=== PATIENT | female | born 1955 | race Two or more races ===

== ENCOUNTER 2017-09-29 13:15 | Emergency (ER) | payer OTHER ==
[2017-09-29 13:22] VITALS: BP 144/80; PULSE 86; TEMP 97.8; BMI 32.0
[2017-09-29] MEDS ORDERED: IBUPROFEN 600 MG TABLET (FP) PO ONE ×2 (14:06→14:34)
--- NOTE | 2017-09-29 14:14 | PDOC ---
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 Denies head injury, denies any back pain. Has complaints of pain and immobilityto left shoulder and tenderness to neck, and some bruising to her left knee. States is ambulatory but pain is primarily to her left shoulder. Admits to having a very low pain threshold. Is left handed and finding it difficult to perform her ADLs. Has taken no medication for relief of pain, has not done any treatments for relief. 09/29/17 18:26 Occurred: reports: yesterday Severity: reports: moderate Pain Location: reports: neck, upper extremity (left shoulder ) Method of Injury: Yes: fall Modifying Factors: improves with: None Loss of Consciousness: no loss of consciousness (did not strike head) Associated Symptoms (Fall): denies symptoms, muscle spasms, neck pain Past History - Travel Traveled outside of the country in the last 30 days: Yes If so, where?: [place] Close contact w/someone who was outside of country & ill: No - Past Medical History Allergies/Adverse Reactions: Allergies Allergy/AdvReac Type Severity Reaction Status Date / Time No Known Allergies Allergy Verified 09/29/17 13:16 Home Medications: Ambulatory Orders Unobtainable [Unobtainable] 09/29/17 COPD: No Diabetes: Yes - Surgical History Appendectomy: Yes - Suicide/Smoking/Psychosocial Hx Smoking History: Never smoked Have you smoked in the past 12 months: No Information on smoking cessation initiated: No Hx Alcohol Use: No Drug/Substance Use Hx: No Substance Use Type: None Review of Systems - Review of Systems Able to Perform ROS?: Yes Is the patient limited Mongolian proficient: Yes Constitutional: Yes: Symptoms Reported, See HPI, Malaise. No: Fever, Loss of Appetite HEENTM: Yes: See HPI. No: Symptoms Reported Respiratory: Yes: See HPI. No: Symptoms reported Musculoskeletal: Yes: Symptoms Reported, See HPI, Joint Pain, Joint Swelling ( left shoulder and left knee), Neck Pain (upper trapezius) Integumentary: Yes: Symptoms Reported, See HPI, Bruising (left patella ) Neurological: Yes: See HPI. No: Symptoms reported, Headache, Numbness, Paresthesia All Other Systems: Reviewed and Negative *Physical Exam - Vital Signs Last Vital Signs Temp Pulse Resp BP Pulse Ox 97.8 F 86 18 144/80 100 09/29/17 13:17 09/29/17 13:17 09/29/17 13:17 09/29/17 13:17 09/29/17 13:17 - Physical Exam General Appearance: Yes: Nourished, Appropriately Dressed, Apparent Distress, Mild Distress, Moderate Distress HEENT: positive: JOSEPH, Normal ENT Inspection, TMs Normal Neck: positive: Tender (tense and tender sternocleidomastoid muscles and upper trapezius primary left side along shoulder capsule and upper lateral neck adams. No crepitus or step-offs to cervical spine, range of motion is somewhat limited secondary to this tenderness to the left side. Has some mild tenderness along the lateral aspect of scapula, tenderness at the before meals joint and mild tenderness to the lateral aspect of clavicle. Range of motion is limited to shoulder to approximately 45 abduction and forward flexion. Strong grasp to hand, and neurovascular intact), Supple Respiratory/Chest: positive: Lungs Clear. negative: Chest Tender Cardiovascular: positive: Regular Rhythm Gastrointestinal/Abdominal: positive: Soft. negative: Tender Musculoskeletal: positive: Decreased Range of Motion (limited to abduction to approximately 45 to left arm, pain is reproduced at clavicle/before meals joint ) Extremity: positive: Normal Capillary Refill, Tender (2 lateral), Other ( tenderness without crepitus or step-offs to patella, knee is mildly swollen but bilateral legs are morbidly obese and difficult to assess. Has no true tenderness to the medial or lateral aspect, is ambulatory with minimal unsteadiness.). negative: Normal Inspection, Normal Range of Motion Integumentary: positive: Normal Color, Dry, Swelling Neurologic: positive: strike plate attacher II-XII NML intact, Fully Oriented, Alert, Normal Mood/ Affect, Normal Response, Motor Strength 5/5 Progress Note - Progress Note Progress Note: X-ray negative for fractures or dislocations, we will treat with NSAIDs and conservative measures. Follow-up with orthopedist as needed for continued pain or problems *DC/Admit/Observation/Transfer Diagnosis at time of Disposition: Contusion Qualifiers: Encounter type: initial encounter Contusion area: shoulder Laterality: left Qualified Code(s): S40.012A - Contusion of left shoulder, initial encounter - Discharge Dispostion Disposition: HOME Condition at time of disposition: Stable Admit: No - Referrals Referrals: Rob Willson MD [Staff Physician] - - Patient Instructions Printed Discharge Instructions: DI for Contusion Additional Instructions: Rest, ice to area on and off for 15 minutes 4-6 times a day Avoid heavy lifting or exercise until pain and swelling is resolved or until further directed Keep area highly elevated to reduce swelling Use splints/Best wrap as directed Followup with orthopedist in one to 2 days if not improving, if significantly improved may wait one week for followup with orthopedist May use ibuprofen 2-200 mg tablets every 6 hours as needed for pain - Post Discharge Activity
== END 2017-09-29 15:34 | disposition home or self-care (01) ==
LOC: JERFT 13:15
DX: S40.012A Contusion of left shoulder, initial encounter (principal); W01.0XXA Fall on same level from slipping, tripping and stumbling without subsequent striking against object, initial encounter; Y93.89 Activity, other specified; Y92.89 Other specified places as the place of occurrence of the external cause; Y99.8 Other external cause status; E11.9 Type 2 diabetes mellitus without complications
CPT/HCPCS: 73010-TC; 73030-TC-LT; 99281-25

== ENCOUNTER 2017-11-06 17:54 | Observation (INO) | payer OTHER ==
--- NOTE | 2017-11-06 18:01 | PDOC ---
Rapid Medical Evaluation Time Seen by Provider: 11/06/17 17:55 Medical Evaluation: Allergies Allergy/AdvReac Type Severity Reaction Status Date / Time No Known Allergies Allergy Verified 11/06/17 17:55 I have performed a brief in-person evaluation of this patient. The patient presents with a chief complaint of: vomiting and weakness since yesterday (diabetic) Pertinent physical exam findings: none I have ordered the following: ekg, labs, UA/culture The patient will proceed to the ED for further evaluation.
[2017-11-06 18:41] LABS: URINE APPEARANCE CLOUDY; URINE BILIRUBIN NEGATIVE (NEGATIVE); URINE BLOOD NEGATIVE (NEGATIVE); URINE COLOR YELLOW; URINE GLUCOSE (UA) NEGATIVE (NEGATIVE); URINE KETONE NEGATIVE (NEGATIVE); URINE NITRITE NEGATIVE (NEGATIVE); URINE PROTEIN NEGATIVE (NEGATIVE); URINE UROBILINOGEN NEGATIVE mg/dL (0.2-1.0)
[2017-11-06 18:42] LABS: URINE LEUK ESTERASE 3+ (NEGATIVE)
[2017-11-06 18:43] LABS: BASO % 0.8 % (0-2.0); EOS % 3.5 % (0-4.5); HEMATOCRIT 45.7 % (32.4-45.2); HEMOGLOBIN 15.2 GM/dL (10.7-15.3); LYMPH % 43.4 % (8-40); MCH 28.4 pg (25.7-33.7); MCHC 33.3 g/dl (32.0-36.0); MEAN CELL VOLUME 85.1 fl (80-96); MEAN PLT VOLUME 8.4 fl (7.5-11.1); MONO % 6.5 % (3.8-10.2); NEUT % 45.8 % (42.8-82.8); PLATELET COUNT 323 K/MM3 (134-434); RBC 5.37 M/mm3 (3.60-5.2); RDW 13.3 % (11.6-15.6); WHITE BLOOD COUNT 6.4 K/mm3 (4.0-10.0)
[2017-11-06 18:47] LABS: EPI CELLS MANY /HPF (FEW); URINE BACTERIA RARE /hpf (NONE SEEN); URINE MUCUS RARE
[2017-11-06 18:55] LABS: INR 1.01 (0.82-1.09); PROTHROMBIN TIME (PATIENT) 11.4 SEC (9.98-11.88)
[2017-11-06 19:10] LABS: ALBUMIN 3.8 g/dl (3.4-5.0); ANION GAP 4 (8-16); BILIRUBIN,TOTAL 0.3 mg/dL (0.2-1.0); BLOOD UREA NITROGEN 14 mg/dL (7-18); CALCIUM 8.7 mg/dL (8.5-10.1); CHLORIDE 103 mmol/L (98-107); CO2 31 mmol/L (21-32); GLUCOSE,RANDOM 181 mg/dL (74-106); POTASSIUM 4.3 mmol/L (3.5-5.1); SGOT/AST 19 U/L (15-37); SGPT/ALT 36 U/L (12-78); SODIUM 138 mmol/L (136-145); TOT PROT 8.1 g/dl (6.4-8.2)
[2017-11-06 19:12] LABS: ALK PHOS 117 U/L (45-117)
[2017-11-06] MEDS ORDERED: SULFAMETHOXAZOLE/TRIMETHOPRIM 800MG/160MG D.S. TABLET PO ONE (20:16)
[2017-11-06] MEDS ORDERED: MECLIZINE HCL 25 MG TABLET (FP) PO ONE (20:16)
--- NOTE | 2017-11-06 20:20 | PDOC ---
History of Present Illness - General Chief Complaint: Weakness Stated Complaint: FATIGUE Time Seen by Provider: 11/06/17 17:55 History Source: Patient, Family Exam Limitations: No Limitations - History of Present Illness Initial Comments: 11/06/17 20:18 The patient is a 62F with a PMH of DM (on metformin) who presents to the ER with complaints of diffuse weakness, vomiting, and dizziness. The patient states that her symptoms started 2 days ago and include weakness, vomiting yesterday, and a sensation that the room is spinning. She denies any vomiting today, nausea, fevers, chills, CP, SOB, abdominal pain, dysuria, and discharge. Past History - Past Medical History Allergies/Adverse Reactions: Allergies Allergy/AdvReac Type Severity Reaction Status Date / Time No Known Allergies Allergy Verified 11/06/17 17:55 Home Medications: Ambulatory Orders Unobtainable [Unobtainable] 09/29/17 COPD: No Diabetes: Yes - Surgical History Appendectomy: Yes - Suicide/Smoking/Psychosocial Hx Smoking History: Never smoked Have you smoked in the past 12 months: No Hx Alcohol Use: No Drug/Substance Use Hx: No Substance Use Type: None Review of Systems - Review of Systems Able to Perform ROS?: Yes Comments:: 11/06/17 21:30 GENERAL/CONSTITUTIONAL: No fever or chills. No weakness. HEAD, EYES, EARS, NOSE AND THROAT: No change in vision. No ear pain or discharge. No sore throat. CARDIOVASCULAR: No chest pain, palpitations, or lightheadedness. RESPIRATORY: No cough, wheezing, shortness of breath, or hemoptysis. GASTROINTESTINAL: Positive for vomiting. No nausea, diarrhea, constipation, or abdominal pain. GENITOURINARY: No dysuria, frequency, hematuria, or change in urination. MUSCULOSKELETAL: No joint or muscle swelling or pain. No neck or back pain. SKIN: No rash or lesions. NEUROLOGIC: Positive for dizziness. No headache, numbness, tingling, weakness, loss of consciousness, or change in strength/sensation. ENDOCRINE: No increased thirst. No abnormal weight change. HEMATOLOGIC/LYMPHATIC: No anemia, easy bleeding, or history of blood clots. ALLERGIC/IMMUNOLOGIC: No hives or skin allergy. Is the patient limited Macedonian proficient: No *Physical Exam - Vital Signs Last Vital Signs Temp Pulse Resp BP Pulse Ox 98.1 F 80 18 129/68 98 11/06/17 17:58 11/06/17 17:58 11/06/17 17:58 11/06/17 17:58 11/06/17 17:58 - Physical Exam Comments: 11/06/17 21:31 GENERAL: Well developed, well nourished. Awake and alert. No acute distress. HEENT: Normocephalic, atraumatic. Hearing grossly normal. Moist mucous membranes. PERRLA, EOMI. No conjunctival pallor. Sclera are non-icteric. NECK: Supple. Full ROM. No JVD. CARDIOVASCULAR: Regular rate and rhythm. No murmurs, rubs, or gallops. PULMONARY: No evidence of respiratory distress. Lungs clear to auscultation bilaterally. No wheezing, rales or rhonchi. ABDOMINAL: Soft. Non-tender. Non-distended. No rebound or guarding. GENITOURINARY: No CVA tenderness bilaterally. MUSCULOSKELETAL: Normal range of motion at all joints. No bony deformities or tenderness. EXTREMITIES: No cyanosis. No clubbing. No edema. No calf tenderness. SKIN: Warm and dry. Normal capillary refill. No rashes. No jaundice. NEUROLOGICAL: Alert, awake, appropriate. Cranial nerves 2-12 intact. Horizontal nystagmus noted when patient looked R. No deficits to light touch and temperature in face, upper extremities and lower extremities. No motor deficits in the in face, upper extremities and lower extremities. Normal speech. PSYCHIATRIC: Cooperative. Good eye contact. Appropriate mood and affect. Heart Score/ECG Review #1 ECG reviewed & interpreted by me at: 21:32 General ECG Interpretation: Sinus Rhythm, Normal Rate, Normal Intervals, No acute ischemic changes Compared to previous ECG there are: Previous ECG unavail 11/06/17 21:32 NSR Rate 67 QRS 86 QTc 414 ED Treatment Course - LABORATORY CBC & Chemistry Diagram: 11/06/17 18:14 11/06/17 18:14 - ADDITIONAL ORDERS Additional order review: Laboratory Results 11/06/17 11/06/17 11/06/17 18:18 18:14 18:14 PT with INR 11.40 INR 1.01 Sodium 138 Potassium 4.3 Chloride 103 Carbon Dioxide 31 Anion Gap 4 L BUN 14 Creatinine 1.0 Creat Clearance w eGFR 55.82 Random Glucose 181 H Calcium 8.7 Total Bilirubin 0.3 AST 19 ALT 36 Alkaline Phosphatase 117 Creatine Kinase 48 Troponin I < 0.02 Total Protein 8.1 Albumin 3.8 Urine Color Yellow Urine Appearance Cloudy Urine pH 5.0 Ur Specific [place] 1.024 Urine Protein Negative Urine Glucose (UA) Negative Urine Ketones Negative Urine Blood Negative Urine Nitrite Negative Urine Bilirubin Negative Urine Urobilinogen Negative Ur Leukocyte Esterase 3+ H Urine WBC (Auto) 19 Urine RBC (Auto) 13 Ur Epithelial Cells Many Urine Bacteria Rare Urine Mucus Rare 11/06/17 18:14 RBC 5.37 H MCV 85.1 MCHC 33.3 RDW 13.3 MPV 8.4 Neutrophils % 45.8 Lymphocytes % 43.4 H Monocytes % 6.5 Eosinophils % 3.5 Basophils % 0.8 - RADIOLOGY Radiology Studies Ordered: Category Date Time Status HEAD CT WITHOUT CONTRAST [CT] Stat CT Scan 11/06/17 20:03 Ordered Medical Decision Making - Medical Decision Making 11/06/17 21:32 The patient is a 62F with a PMH of DM who presents with vertiginous symptoms. UA indicates UTI. Will treat. I will order a CT because of 2-3 days of continuous vertiginous symptoms. Will give meclizine and bactrim. Dispo: likely admission for CVA workup. This is not a code great because of the delayed presentation. This is likely peripheral vertigo but central causes must be r/o. The patient is coming from a different country and does not have good follow up. She will require admission for a workup. 11/06/17 22:21 I have endorsed the patient to Dr. Dasilva. Pending CT head read. *DC/Admit/Observation/Transfer Diagnosis at time of Disposition: Vertiginous syndrome - Discharge Dispostion Condition at time of disposition: Stable Admit: Yes - Referrals - Patient Instructions - Post Discharge Activity
[2017-11-06] MEDS ORDERED: MECLIZINE HCL 25 MG TABLET (FP) ONE (20:22)
[2017-11-06] MEDS ORDERED: SULFAMETHOXAZOLE/TRIMETHOPRIM 800MG/160MG D.S. TABLET ONE (20:22)
--- NOTE | 2017-11-06 21:29 | PDOC ---
Attending Attestation - Resident Resident Name: Lit Florez - ED Attending Attestation I have performed the following: I have examined & evaluated the patient, The case was reviewed & discussed with the resident, I agree w/resident's findings & plan, Exceptions are as noted - HPI HPI: 11/06/17 22:19 62-year-old female with past medical history of diabetes presents with vertiginous-like symptoms for 3 days. The patient reported that she had persistent vertiginous symptoms that is constant throughout the day and worsened with movements. Stated she had vomited once yesterday and since then she felt very unsteady on her feet. Denies slurring of speech or drooling. Denies any numbness. However, she feels generally weak. Denies fevers, diarrhea , cough. Denies prior history of stroke. - Physicial Exam PE: 11/06/17 22:23 GENERAL: Awake, alert, and fully oriented, in no acute distress. HEAD: No signs of trauma EYES: PERRLA, EOMI, sclera anicteric, conjunctiva clear ENT: Auricles normal inspection, hearing grossly normal, nares patent NECK: Normal ROM, supple LUNGS: Breath sounds equal, clear to auscultation bilaterally. No wheezes, and no crackles HEART: Regular rate and rhythm, normal S1 and S2, no murmurs, rubs or gallops ABDOMEN: Soft, nontender, normoactive bowel sounds. No guarding, no rebound. No masses EXTREMITIES: Normal range of motion, no edema. No clubbing or cyanosis. No cords, erythema, or tenderness NEUROLOGICAL: Cranial nerves II through XII intact. Normal speech. 5/5 strength upper and lower extremities. Sensation intact throughout. No dysmetria. Attempted to gait the patient, but the patient was very unstable. No nystagmus. SKIN: Warm, Dry, normal turgor, no rashes or lesions noted. - Medical Decision Making 11/06/17 22:24 Vital Signs Temp Pulse Resp BP Pulse Ox 98.1 F 80 18 129/68 98 11/06/17 17:58 11/06/17 17:58 11/06/17 17:58 11/06/17 17:58 11/06/17 17:58 I suspect patient likely has vertigo. This may potentially be secondary or exacerbated by her urinary tract infection which she has received antibiotics. However, the patient has unstable gait but otherwise unremarkable neurological exam. Given her diabetes history, should consider the differential of posterior stroke with this patient. The NIH stroke scale is 0. CAT scan the head was obtained and demonstrates no acute findings. Will ultimately admit the patient to the hospital for further evaluation. Heart Score/ECG Review #1 ECG reviewed & interpreted by me at: 20:45 11/06/17 21:28 NSR 67, no std/cipriano, normal axis, normal intervals, QTC 414 msec NIH Stroke Scale - Last Known Well Date/Time & Onset Date Last Known Well: 11/03/17 - Initial Evaluation Level of consciousness: Alert Ask patient the month and their age: Answers both correctly Ask patient to open & close eyes; make fist and let go: Obeys both correctly Best gaze (horizontal eye movement): Normal Visual field testing: No visual field loss Facial paresis (Show teeth/raise eyebrows/close eyes tight): Normal symmetrical movement Motor Function: Left Arm: Normal Motor Function: Right Arm: Normal (extends arm 90 (or 45) degrees for 10 seconds without drift Motor Function: Left Leg: Normal (extends leg 30 degrees for 5 seconds without drift) Motor Function: Right Leg: Normal (extends leg 30 degrees for 5 seconds without drift) Limb Ataxia: No ataxia Sensory(Use pinprick test arms,legs,trunk,face/side to side): Normal Best language (Describe picture, name items, read sentences): No Aphasia Dysarthria (read several words): Normal articulation Extinction and Inattention: No abnormality - Total Score NIH Stroke Scale Score: 0
--- NOTE | 2017-11-06 23:30 | HP ---
CHIEF COMPLAINT: dizziness PCP: HISTORY OF PRESENT ILLNESS: 62 y/o F w/PMH of DM presents to ER w/ c/o nausea, vomiting and dizziness. Pt has had these symptoms for 2 days and she feels as though the room is spinning even when laying on her bed but is worsened especially when moving her head. Pt states she has had these symptoms in the past when she was on a flight 3 months ago. Her sister also has similar symptoms. She denies any CP, SOB, abd pain, dysuria. She also c/o L shoulder pain and decreased ROM of L arm at shoulder. ER course was notable for: (1) meclizine 25 mg, bactrim (2) Head CT PAST MEDICAL HISTORY: DM PAST SURGICAL HISTORY: Appendectomy Social History: Smoking: denies Alcohol: denies Drugs: denies Family History: Sister with vertigo Allergies No Known Allergies Allergy (Verified 11/06/17 17:55) HOME MEDICATIONS: Home Medications Medication Instructions Recorded Unobtainable [Unobtainable] 09/29/17 REVIEW OF SYSTEMS CONSTITUTIONAL: Absent: fever, chills CARDIOVASCULAR: Absent: chest pain, syncope RESPIRATORY: Absent: cough, shortness of breath GASTROINTESTINAL: +nausea, vomiting Absent: abdominal pain GENITOURINARY: Absent: dysuria, frequency NEUROLOGIC: dizziness PHYSICAL EXAMINATION Vital Signs - 24 hr 11/06/17 17:58 Temperature 98.1 F Pulse Rate 80 Respiratory 18 Rate Blood Pressure 129/68 O2 Sat by Pulse 98 Oximetry (%) GENERAL: Awake, alert, and fully oriented, in no acute distress. HEAD: Normal with no signs of trauma. EYES: extraocular movements intact, sclera anicteric, conjunctiva clear. EARS, NOSE, THROAT: Ears normal, nares patent NECK: Normal range of motion, supple LUNGS: Breath sounds equal, clear to auscultation bilaterally. HEART: Regular rate and rhythm, normal S1 and S2 ABDOMEN: Soft, nontender, not distended, normoactive bowel sounds. UPPER EXTREMITIES: No peripheral edema. LUE with decreased ROM at shoulder. LOWER EXTREMITIES: warm, well-perfused. No peripheral edema. NEUROLOGICAL: Normal speech. Gait not observed. PSYCHIATRIC: Cooperative. Good eye contact. Appropriate mood and affect. SKIN: Warm, dry Laboratory Results - last 24 hr 11/06/17 11/06/17 11/06/17 18:14 18:14 18:14 WBC 6.4 RBC 5.37 H Hgb 15.2 Hct 45.7 H MCV 85.1 MCH 28.4 MCHC 33.3 RDW 13.3 Plt Count 323 MPV 8.4 Neutrophils % 45.8 Lymphocytes % 43.4 H Monocytes % 6.5 Eosinophils % 3.5 Basophils % 0.8 PT with INR 11.40 INR 1.01 Sodium 138 Potassium 4.3 Chloride 103 Carbon Dioxide 31 Anion Gap 4 L BUN 14 Creatinine 1.0 Creat Clearance w eGFR 55.82 Random Glucose 181 H Calcium 8.7 Total Bilirubin 0.3 AST 19 ALT 36 Alkaline Phosphatase 117 Creatine Kinase 48 Troponin I < 0.02 Total Protein 8.1 Albumin 3.8 Urine Color Urine Appearance Urine pH Ur Specific [place] Urine Protein Urine Glucose (UA) Urine Ketones Urine Blood Urine Nitrite Urine Bilirubin Urine Urobilinogen Ur Leukocyte Esterase Urine WBC (Auto) Urine RBC (Auto) Ur Epithelial Cells Urine Bacteria Urine Mucus 11/06/17 18:18 WBC RBC Hgb Hct MCV MCH MCHC RDW Plt Count MPV Neutrophils % Lymphocytes % Monocytes % Eosinophils % Basophils % PT with INR INR Sodium Potassium Chloride Carbon Dioxide Anion Gap BUN Creatinine Creat Clearance w eGFR Random Glucose Calcium Total Bilirubin AST ALT Alkaline Phosphatase Creatine Kinase Troponin I Total Protein Albumin Urine Color Yellow Urine Appearance Cloudy Urine pH 5.0 Ur Specific [place] 1.024 Urine Protein Negative Urine Glucose (UA) Negative Urine Ketones Negative Urine Blood Negative Urine Nitrite Negative Urine Bilirubin Negative Urine Urobilinogen Negative Ur Leukocyte Esterase 3+ H Urine WBC (Auto) 19 Urine RBC (Auto) 13 Ur Epithelial Cells Many Urine Bacteria Rare Urine Mucus Rare Imaging: Head CT 11/06/2017: Impression: No acute intracranial hemorrhage, mass effects, or hydrocephalus. ASSESSMENT/PLAN: 62 y/o F w/PMH of DM presents to ER w/ c/o nausea, vomiting and dizziness. To be monitored in obs for vertigo. -Dizziness likely secondary to BPPV -Meclizine 25 mg po bid PRN for dizziness -ENT consulted -Will need a prescription of meclizine prn for dizziness -L shoulder pain likely secondary to rotator cuff tear -Ortho consulted -tylenol 650 mg po q6h prn for pain -UTI -c/w bactrim -DM -BGMs, ISS ACHS -DVT ppx -Heparin 5000 units sq q8h -FEN -No fluids -monitor electrolytes -Diabetic diet -Dispo: Monitor in obs Visit type - Emergency Visit Emergency Visit: Yes ED Registration Date: 11/06/17 Care time: The patient presented to the Emergency Department on the above date and was hospitalized for further evaluation of their emergent condition. - New Patient This patient is new to me today: Yes Date on this admission: 11/07/17 - Critical Care Critical Care patient: No
[2017-11-06] MEDS ORDERED: ACETAMINOPHEN 325 MG TABLET (FP) PO PRN (23:33)
[2017-11-06] MEDS ORDERED: MECLIZINE HCL 25 MG TABLET (FP) PO PRN (23:33)
--- NOTE | 2017-11-07 00:11 | PN ---
Teaching Attending Note Name of Resident: Alexandru Galan ATTENDING PHYSICIAN STATEMENT I saw and evaluated the patient. I reviewed the resident's note and discussed the case with the resident. I agree with the resident's findings and plan as documented. SUBJECTIVE: patient presented to the hospital with vertigo that occurred while she was laying in be the patient stated that the pain is worse when the patient moves her head in bed. she had similar episode before while she was flying from [place] , according to the daughter the patient's sister has the same problem. CT scan didnt show any acute stroke OBJECTIVE: ASSESSMENT AND PLAN: 62 y/o F w/PMH of DM presents to ER w/ c/o nausea, vomiting and dizziness. To be monitored in obs for vertigo. -Dizziness likely secondary BPPV -Meclizine 25 mg po bid PRN for dizziness -ENT consulted -Will need a prescription of meclizine prn for dizziness - consider repeating CT scan if high clinical suspicion for stroke -L shoulder pain likely secondary to rotator cuff tear -Ortho consulted -tylenol 650 mg po q6h prn for pain -DM -BGMs, ISS ACHS -DVT ppx -Heparin 5000 units sq q8h -
[2017-11-07 01:11] VITALS: BMI 31.1
[2017-11-07] MEDS: INSULIN SLIDING SCALE (NOVOLOG) 1 VIAL SQ SCH ×4 (06:06→21:45)
[2017-11-07 07:50] LABS: ALBUMIN 3.5 g/dl (3.4-5.0); ANION GAP 5 (8-16); BLOOD UREA NITROGEN 15 mg/dL (7-18); CALCIUM 8.7 mg/dL (8.5-10.1); CHLORIDE 102 mmol/L (98-107); CO2 32 mmol/L (21-32); GLUCOSE,RANDOM 169 mg/dL (74-106); POTASSIUM 4.1 mmol/L (3.5-5.1); SGOT/AST 16 U/L (15-37); SGPT/ALT 32 U/L (12-78); SODIUM 139 mmol/L (136-145)
[2017-11-07 08:02] LABS: ALK PHOS 108 U/L (45-117); BILIRUBIN,TOTAL 0.4 mg/dL (0.2-1.0); CREATININE 0.9 mg/dL (0.55-1.02); TOT PROT 7.3 g/dl (6.4-8.2)
[2017-11-07 08:03] LABS: BASO % 0.7 % (0-2.0); EOS % 3.7 % (0-4.5); HEMATOCRIT 43.4 % (32.4-45.2); HEMOGLOBIN 14.2 GM/dL (10.7-15.3); LYMPH % 51.2 % (8-40); MCH 27.7 pg (25.7-33.7); MCHC 32.7 g/dl (32.0-36.0); MEAN CELL VOLUME 84.8 fl (80-96); MEAN PLT VOLUME 8.1 fl (7.5-11.1); MONO % 7.5 % (3.8-10.2); NEUT % 36.9 % (42.8-82.8); PLATELET COUNT 296 K/MM3 (134-434); RBC 5.12 M/mm3 (3.60-5.2); RDW 13.2 % (11.6-15.6)
[2017-11-07] MEDS: MECLIZINE HCL 25 MG TABLET (FP) PO PRN (09:57)
[2017-11-07] MEDS: SULFAMETHOXAZOLE/TRIMETHOPRIM 800MG/160MG D.S. TABLET PO SCH ×2 (09:57→21:11)
--- NOTE | 2017-11-07 11:32 | CONSULT ---
Consult - History of Present Illness Chief Complaint: Left shoulder pain History of Present Illness: 62 y/o female c/o left shoulder pain for approximately 3-4 months. She was living in [place] at the time and fell hard onto the left shoulder. She states she has been unable to lift the arm since. She did go to the ER about 6 weeks ago and had an x-ray of the shoulder which was normal. The pain is worse with use and better with rest. No other associated, aggravating or relieving factors. - History Source History Provided By: Patient, Family Member, Medical Record - Past Medical History ...: No - Alcohol/Substance Use Hx Alcohol Use: No - Smoking History Smoking history: Never smoked Have you smoked in the past 12 months: No Home Medications - Allergies Allergies/Adverse Reactions: Allergies Allergy/AdvReac Type Severity Reaction Status Date / Time No Known Allergies Allergy Verified 11/06/17 17:55 - Home Medications Home Medications: Ambulatory Orders Unobtainable [Unobtainable] 09/29/17 Review of Systems - Review of Systems Constitutional: reports: No Symptoms Eyes: reports: No Symptoms HENT: reports: No Symptoms Neck: reports: No Symptoms Cardiovascular: reports: No Symptoms Respiratory: reports: No Symptoms Gastrointestinal: reports: No Symptoms Genitourinary: reports: No Symptoms, Testicular Pain Musculoskeletal: reports: Extremity Pain Integumentary: reports: No Symptoms Neurological: reports: No Symptoms Endocrine: reports: No Symptoms Hematology/Lymphatic: reports: No Symptoms Psychiatric: reports: No Symptoms Physical Exam Vital Signs: Vital Signs Temperature 98.6 F 11/07/17 10:00 Pulse Rate 58 L 11/07/17 10:00 Respiratory Rate 18 11/07/17 10:00 Blood Pressure 110/61 11/07/17 10:00 O2 Sat by Pulse Oximetry (%) 99 11/07/17 10:00 Constitutional: Yes: Well Nourished, No Distress, Calm HENT: Yes: Atraumatic, Normocephalic Musculoskeletal: Yes: Other (Left shoulder: Mild edema of the shoulder. Diffuse tenderness along the joint space. No tenderness along the calvicle. Pain with motion of the shoulder. Foward flexion to 100 degrees. Postive empty can test. Smooth ROM of the shoulder. NVID) Labs: CBC, BMP 11/07/17 06:15 02/03/18 06:15 Imaging - Results X-ray: Report Reviewed, Image Reviewed (Xray of left shoulder from sep 2017 is normal) Assessment/Plan #1 Left shoulder pain s/p fall 4 months ago -Discussed today's findings and treatment options with the patient -Recommend MRI to rule out rotator cuff tear
--- NOTE | 2017-11-07 13:04 | EKG ---
Test Reason : Blood Pressure : / mmHG Vent. Rate : 067 BPM Atrial Rate : 067 BPM P-R Int : 160 ms QRS Dur : 086 ms QT Int : 392 ms P-R-T Axes : 049 -01 068 degrees QTc Int : 414 ms NORMAL SINUS RHYTHM POOR R WAVE PROGRESSION ABNORMAL ECG NO PREVIOUS ECGS AVAILABLE Confirmed by ZAHRA REBOLLEDO, NBA ([id number]) on 11/07/2017 1:03:58 PM Referred By: Confirmed By:NBA SWEENEY MD
--- NOTE | 2017-11-07 17:34 | PN ---
Physical Exam: SUBJECTIVE: Patient seen and examined Patient is feeling better on Meclizine po. No dizziness today. OBJECTIVE: Vital Signs Temperature 98.1 F 11/07/17 14:00 Pulse Rate 97 H 11/07/17 14:00 Respiratory Rate 18 11/07/17 10:00 Blood Pressure 120/91 11/07/17 14:00 O2 Sat by Pulse Oximetry (%) 99 11/07/17 10:00 GENERAL: The patient is awake, alert, and fully oriented, in no acute distress. HEAD: Normal with no signs of trauma. EYES: PERRL, extraocular movements intact, sclera anicteric, conjunctiva clear. ENT: Ears normal, oropharynx clear without exudates, moist mucous membranes. NECK: Trachea midline, full range of motion, supple. LUNGS: Breath sounds equal, clear to auscultation bilaterally, no wheezes, no crackles, no accessory muscle use. HEART: Regular rate and rhythm, S1, S2 without murmur, rub or gallop. ABDOMEN: Soft, nontender, nondistended, normoactive bowel sounds, no guarding, no rebound, no hepatosplenomegaly, no masses. EXTREMITIES: 2+ pulses, warm, well-perfused, no edema. NEUROLOGICAL: Cranial nerves II through XII grossly intact. Normal speech, gait not observed. PSYCH: Normal mood, normal affect. SKIN: Warm, dry, normal turgor, no rashes or lesions noted CBCD WBC 6.0 K/mm3 (4.0-10.0) 11/07/17 06:15 RBC 5.12 M/mm3 (3.60-5.2) 11/07/17 06:15 Hgb 14.2 GM/dL (10.7-15.3) 11/07/17 06:15 Hct 43.4 % (32.4-45.2) 11/07/17 06:15 MCV 84.8 fl (80-96) 11/07/17 06:15 MCHC 32.7 g/dl (32.0-36.0) 11/07/17 06:15 RDW 13.2 % (11.6-15.6) 11/07/17 06:15 Plt Count 296 K/MM3 (134-434) 11/07/17 06:15 MPV 8.1 fl (7.5-11.1) 11/07/17 06:15 CMP Sodium 139 mmol/L (136-145) 11/07/17 06:15 Potassium 4.1 mmol/L (3.5-5.1) 11/07/17 06:15 Chloride 102 mmol/L (98-107) 11/07/17 06:15 Carbon Dioxide 32 mmol/L (21-32) 11/07/17 06:15 Anion Gap 5 (8-16) L 11/07/17 06:15 BUN 15 mg/dL (7-18) 11/07/17 06:15 Creatinine 0.9 mg/dL (0.55-1.02) 11/07/17 06:15 Creat Clearance w eGFR > 60 (>60) 11/07/17 06:15 Random Glucose 169 mg/dL (74-106) H 11/07/17 06:15 Calcium 8.7 mg/dL (8.5-10.1) 11/07/17 06:15 Total Bilirubin 0.4 mg/dL (0.2-1.0) D 11/07/17 06:15 AST 16 U/L (15-37) 11/07/17 06:15 ALT 32 U/L (12-78) 11/07/17 06:15 Alkaline Phosphatase 108 U/L (45-117) 11/07/17 06:15 Total Protein 7.3 g/dl (6.4-8.2) 11/07/17 06:15 Albumin 3.5 g/dl (3.4-5.0) 11/07/17 06:15 CARDIAC ENZYMES Creatine Kinase 48 IU/L (26-192) 11/06/17 18:14 Troponin I < 0.02 ng/ml (0.00-0.05) 11/06/17 18:14 Current Medications Generic Name Dose Route Start Last Admin Trade Name Freq PRN Reason Stop Dose Admin Acetaminophen 650 mg 11/06/17 23:33 Tylenol - PO Q6H PRN PAIN Insulin Aspart 1 vial 11/07/17 07:00 11/07/17 13:15 Novolog Vial Sliding Scale - SQ 2 units ACHS MICHELLE Administration Protocol Meclizine HCl 25 mg 11/06/17 23:39 11/07/17 09:57 Antivert - PO 25 mg Q12H PRN Administration VERTIGO Trimethoprim/Sulfamethoxazole 1 each 11/07/17 10:00 11/07/17 09:57 Bactrim Ds - PO 1 each BID MICHELLE Administration Home Medications Medication Instructions Recorded Unobtainable [Unobtainable] 09/29/17 A/P: 62 y/o F w/PMH of DM presents to ER w/ c/o nausea, vomiting and dizziness. To be monitored in obs for vertigo. # Acute Dizziness due to BPPV will continue Meclizine 25 mg po bid PRN for dizziness #L shoulder pain possible to rotator cuff tear , Ortho consult appreciated ordered MRI ordered will follow. # DM on BGMs, ISS ACHS, continue DVT ppx Heparin 5000 units sq q8h Visit type - Emergency Visit Emergency Visit: Yes ED Registration Date: 11/06/17 Care time: The patient presented to the Emergency Department on the above date and was hospitalized for further evaluation of their emergent condition. - New Patient This patient is new to me today: Yes Date on this admission: 11/07/17 - Critical Care Critical Care patient: No - Discharge Referral Referred to [facility] Med P.C.: No
[2017-11-08] MEDS: INSULIN SLIDING SCALE (NOVOLOG) 1 VIAL SQ SCH ×3 (06:07→18:21)
--- NOTE | 2017-11-08 11:04 | PN ---
Physical Exam: SUBJECTIVE: Patient seen and examined at bedside. No acute overnight events. Patient's daughter is at bedside and assisted in translating. Patient's vertigo has improved. Complains of mild, chronic left shoulder pain that has been present previously OBJECTIVE: Vital Signs Period Temp Pulse Resp BP Sys/High Pulse Ox Last 24 Hr 97.4 F-98.4 F 71-97 18-24 108-128/61-91 96-97 GENERAL: The patient is awake, alert, and fully oriented, in no acute distress. HEAD: Normal with no signs of trauma. LUNGS: Breath sounds equal, clear to auscultation bilaterally, no wheezes, no crackles, no accessory muscle use. HEART: Regular rate and rhythm, S1, S2 without murmur, rub or gallop. ABDOMEN: Soft, nontender, nondistended, normoactive bowel sounds, no guarding, no rebound, no hepatosplenomegaly, no masses. EXTREMITIES: 2+ pulses, warm, well-perfused, no edema. 3/5 muscle strength of L shoulder with limited ROM NEUROLOGICAL: Cranial nerves II through XII grossly intact. Normal speech, gait not observed. PSYCH: Normal mood, normal affect. SKIN: Warm, dry, normal turgor, no rashes or lesions noted Laboratory Results - last 24 hr 11/07/17 11/07/17 11/08/17 12:55 21:38 05:52 POC Glucometer 171 218 184 Active Medications Generic Name Dose Route Start Last Admin Trade Name Freq PRN Reason Stop Dose Admin Acetaminophen 650 mg 11/06/17 23:33 Tylenol - PO Q6H PRN PAIN Insulin Aspart 1 vial 11/07/17 07:00 11/08/17 06:07 Novolog Vial Sliding Scale - SQ 2 units ACHS MICHELLE Administration Protocol Meclizine HCl 25 mg 11/06/17 23:39 11/07/17 09:57 Antivert - PO 25 mg Q12H PRN Administration VERTIGO ASSESSMENT/PLAN: 62 year old female with history of diabetes is admitted for observation for vertigo, nausea and vomiting #Benign Positional Vertigo: improved -Meclizine 25 mg po bid PRN for dizziness -Will likely prescribe Meclizine PRN at home #L shoulder pain: Chronic, records show L shoulder pain from last year -Ortho consulted -tylenol 650 mg po q6h prn for pain #UTI: unlikely UTI -Bactrim was D/C'd #Diabetes Mellitus: controlled -BGMs -ISS #Prophylaxis -Heparin 5000 units sq q8h #FEN -No standing fluids -replete lytes in AM -Diabetic diet #Disposition: -Monitor in obs, likely DC today Visit type - Emergency Visit Emergency Visit: No - New Patient This patient is new to me today: Yes Date on this admission: 11/08/17 - Critical Care Critical Care patient: No
[2017-11-08] MEDS: MECLIZINE HCL 25 MG TABLET (FP) PO PRN (11:47)
--- NOTE | 2017-11-08 17:12 | DS ---
Addendum entered and electronically signed by Lanre Landers, RESIDENT 11/08 17:25: Once MRI results return, please call daughter named Jessica at with results Original Note: Physical Exam: SUBJECTIVE: Patient seen and examined at bedside. No acute overnight events. Patient's daughter is at bedside and assisted in translating. Patient's vertigo has improved. Complains of mild, chronic left shoulder pain that has been present previously OBJECTIVE: Vital Signs Period Temp Pulse Resp BP Sys/High Pulse Ox Last 24 Hr 97.4 F-98.4 F 71-84 18-24 108-128/61-78 96-97 PHYSICAL EXAM GENERAL: The patient is awake, alert, and fully oriented, in no acute distress. HEAD: Normal with no signs of trauma. LUNGS: Breath sounds equal, clear to auscultation bilaterally, no wheezes, no crackles, no accessory muscle use. HEART: Regular rate and rhythm, S1, S2 without murmur, rub or gallop. ABDOMEN: Soft, nontender, nondistended, normoactive bowel sounds, no guarding, no rebound, no hepatosplenomegaly, no masses. EXTREMITIES: 2+ pulses, warm, well-perfused, no edema. 3/5 muscle strength of L shoulder with limited ROM NEUROLOGICAL: Cranial nerves II through XII grossly intact. Normal speech, gait not observed. PSYCH: Normal mood, normal affect. SKIN: Warm, dry, normal turgor, no rashes or lesions noted LABS Laboratory Results - last 24 hr 11/07/17 11/08/17 11/08/17 21:38 05:52 11:27 POC Glucometer 218 184 148 HOSPITAL COURSE: Date of Admission:11/06/17 62 y/o F w/ PMH of DM presented to ER complaining of nausea, vomiting and dizziness of 2 days duration. Vertigo was exacerbated by moving her head. She has had these symptoms in the past when she was on a flight 3 months ago. Her sister also has similar symptoms.She also complained of L shoulder pain and decreased ROM of L arm at shoulder - which is similar to workup done for L shoulder 1 year ago. Patient was admitted for treatment of vertigo. She was additionally found to have a 3+ leukocyte esterase and 19WBC in urine, but the culture was contaminated. She was treated with one dose of bactrim. She was given meclizine for her vertigo. Patient's symptoms improved and did not return. Patient received an MRI of her shoulder and was given a CD with the images to bring to her doctor. She was discharged with a prescription for meclizine and instructions to see her PCP in 1 week and to make an appointment with the ENT Dr. Gill within 1 day after discharge. Date of Discharge: 11/08/17 Minutes to complete discharge: 35 <Lanre Landers - Last Filed: 11/08/17 17:15> Physical Exam: Patient seen and examined. Will discharge patient home with follow up with ENT in am . Copy of MRI disc was given to the patient. <Emani Grullon - Last Filed: 11/08/17 18:42> Discharge Summary Reason For Visit: VERTIGO SYNDROME Current Active Problems Vertiginous syndrome (Acute) - Home Medications Comprehensive Discharge Medication List: Ambulatory Orders Meclizine HCl [Antivert -] 25 mg PO BID PRN #60 tablet 11/08/17 <Lanre Landers - Last Filed: 11/08/17 17:15> Current Active Problems Vertiginous syndrome (Acute) - Home Medications Comprehensive Discharge Medication List: Ambulatory Orders Meclizine HCl [Antivert -] 25 mg PO BID PRN #60 tablet 11/08/17 <Emani Grullon - Last Filed: 11/08/17 18:42> Condition: Improved - Instructions Diet, Activity, Other Instructions: You were admitted to the hospital for the treatment of Vertigo. BPPV, sometimes called benign positional vertigo, positional vertigo, postural vertigo, or simply vertigo, is a type of vertigo that develops due to collections of calcium in the inner ear. These collections are called canaliths. Moving the canaliths (called canalith repositioning) is a common treatment for BPPV. Vertigo is typically brief in people with BPPV, lasting seconds to minutes. Vertigo can be triggered by moving the head in certain ways. You were treated in the hospital with Meclizine, a medication that can help with vertigo. You also had an MRI of your shoulder performed to address the chronic shoulder pain you have been having. We have given it to you. Please bring it with you when you see your doctor. Medical Recommendations: -We will prescribe you meclizine 25mg twice a day NEEDED for vertigo. Take only if you experience the symptoms. -Drink plenty of water to stay hydrated. Make an appointment with the ENT (Ear nose throat specialist) TOMORROW to discuss management of your vertigo Make an appointment with your primary care physician within 1 week of discharge. Referrals: Lanre Gill MD [Staff Physician] - Disposition: HOME This patient is new to me today: Yes Date on this admission: 11/08/17 Emergency Visit: No Critical Care patient: No - Discharge Referral Referred to [facility] Med P.C.: No <Lanre Landers - Last Filed: 11/08/17 17:15>
[2017-11-08 19:32] VITALS: BP 107/55; PULSE 93; TEMP 98.2
== END 2017-11-08 20:08 | disposition home or self-care (01) ==
LOC: JER 17:54 → JERBED 22:21 → J4W 11-07 00:41
PROVIDERS: ADMIT Internal Medicine; ATTEND Internal Medicine
DX: H81.10 Benign paroxysmal vertigo, unspecified ear (principal); H82.9 Vertiginous syndromes in diseases classified elsewhere, unspecified ear; N39.0 Urinary tract infection, site not specified; R26.81 Unsteadiness on feet; E11.9 Type 2 diabetes mellitus without complications; M25.512 Pain in left shoulder
CPT/HCPCS: 36415; 70450-TC; 73218-TC-LT; 80053; 81003; 81015; 82550; 82962; 83735; 84443; 84484; 85025; 85610; 87086; 93005; 93010; 99285-25; G0378

== ENCOUNTER 2023-06-03 13:40 | Emergency (ER) | payer OTHER ==
[2023-06-03 13:49] VITALS: BP 121/73; PULSE 75; RESP 18; TEMP 97.3; BMI 27.6
[2023-06-03] MEDS ORDERED: ACETAMINOPHEN 325 MG TABLET (FP) PO ONE (14:52)
[2023-06-03] MEDS ORDERED: ACETAMINOPHEN 500 MG TABLET (FP) ONE (14:55)
[2023-06-03] MEDS ORDERED: KETOROLAC TROMETHAMINE 15 MG/ML VIAL IM ONE (15:44)
[2023-06-03] MEDS ORDERED: KETOROLAC TROMETHAMINE 15 MG/ML VIAL ONE (15:50)
== END 2023-06-03 18:14 | disposition home or self-care (01) ==
LOC: JERFT 13:40
PROC: 3E0233Z Introduction of Anti-inflammatory into Muscle, Percutaneous Approach (ICD-10-PCS; principal; 2023-06-03)
DX: S20.211A Contusion of right front wall of thorax, initial encounter (principal); S80.211A Abrasion, right knee, initial encounter; S80.212A Abrasion, left knee, initial encounter; W10.1XXA Fall (on)(from) sidewalk curb, initial encounter
CPT/HCPCS: 71101-TC-RT-FY; 73030-TC-LT-FY; 73502-TC-LT-FY; 73560-TC-RT-FY; 73610-TC-LT-FY; 73630-TC-LT; 93005; 93010; 99284-25

== ENCOUNTER 2023-06-14 17:58 | Emergency (ER) | payer OTHER ==
[2023-06-14 18:06] VITALS: RESP 18; BMI 31.1
[2023-06-14] MEDS ORDERED: BISMUTH SUBSALICYLATE 262 MG/15 ML BTL PO ONE (19:47)
[2023-06-14] MEDS ORDERED: SODIUM CHLORIDE 0.9% 500 ML INFUS.BAG IV ONE (19:47)
[2023-06-14] MEDS ORDERED: ACETAMINOPHEN 1000 MG/100 ML BAG IVPB ONE (19:53)
[2023-06-14] MEDS ORDERED: ACETAMINOPHEN INJECTION 100 ML IVPB ONE (20:16)
[2023-06-14 20:53] LABS: BASO % 0.4 % (0-2.0); EOS % 2.9 % (0-4.5); HEMATOCRIT 45.4 % (32.4-45.2); HEMOGLOBIN 15.2 GM/dL (10.7-15.3); LYMPH % 48.1 % (8-40); MCH 28.3 pg (25.7-33.7); MCHC 33.5 g/dl (32.0-36.0); MEAN CELL VOLUME 84.4 fl (80-96); MEAN PLT VOLUME 8.5 fl (7.5-11.1); MONO % 6.3 % (3.8-10.2); NEUT % 42.3 % (42.8-82.8); PLATELET COUNT 308 10^3/uL (134-434); RBC 5.38 M/mm3 (3.60-5.2); RDW 13.6 % (11.6-15.6); WHITE BLOOD COUNT 6.4 K/mm3 (4.0-10.0)
[2023-06-14 21:10] LABS: POTASSIUM 4.1 mmol/L (3.5-5.1)
[2023-06-14 21:12] LABS: CALCIUM 8.7 mg/dL (8.5-10.1)
[2023-06-14 21:13] LABS: ALBUMIN 3.6 g/dl (3.4-5.0); BLOOD UREA NITROGEN 22.3 mg/dL (7-18); MAGNESIUM 1.7 mg/dL (1.8-2.4)
[2023-06-14 21:15] LABS: CREATININE 1.1 mg/dL (0.55-1.3)
[2023-06-14 21:17] LABS: BILIRUBIN,TOTAL 0.2 mg/dL (0.2-1); TOT PROT 7.5 g/dl (6.4-8.2)
[2023-06-14 22:19] LABS: URINE APPEARANCE CLEAR; URINE BILIRUBIN NEGATIVE (NEGATIVE); URINE COLOR YELLOW; URINE GLUCOSE (UA) 3+ (NEGATIVE); URINE KETONE NEGATIVE (NEGATIVE); URINE LEUK ESTERASE NEGATIVE (NEGATIVE); URINE NITRITE NEGATIVE (NEGATIVE); URINE PROTEIN NEGATIVE (NEGATIVE); URINE UROBILINOGEN 0.2 mg/dL (0.2-1.0)
[2023-06-14 22:41] VITALS: BP 108/73; PULSE 64; TEMP 98.1
== END 2023-06-14 23:19 | disposition home or self-care (01) ==
LOC: JER 17:58
PROC: 3E033NZ Introduction of Analgesics, Hypnotics, Sedatives into Peripheral Vein, Percutaneous Approach (ICD-10-PCS; principal; 2023-06-14)
DX: R11.2 Nausea with vomiting, unspecified (principal); K52.9 Noninfective gastroenteritis and colitis, unspecified; K29.00 Acute gastritis without bleeding; Z20.822 Contact with and (suspected) exposure to COVID-19
CPT/HCPCS: 0241U-QW; 36415; 74177-TC; 80053; 81003; 83605; 83690; 83735; 85025; 87086; 93005; 93010; 99285-25

== ENCOUNTER 2024-05-05 13:52 | Emergency (ER) | payer OTHER ==
[2024-05-05 14:04] VITALS: BP 102/69; PULSE 71; RESP 18; TEMP 98.5; BMI 34.3
== END 2024-05-05 15:47 | disposition home or self-care (01) ==
LOC: JER 13:52
DX: E11.65 Type 2 diabetes mellitus with hyperglycemia (principal)
CPT/HCPCS: 82962; 99283-25

== ENCOUNTER 2025-07-17 16:53 | Emergency (ER) | payer OTHER ==
[2025-07-17 17:03] VITALS: BP 128/80; PULSE 71; TEMP 97.5; BMI 30.1
[2025-07-17 18:52] LABS: BG HCT 48.0 % (32.4-45.2); VENOUS BASE EXCESS 1.9 mmol/L (-2-2); VENOUS O2 SATURATION 45.9 % (70-80); VENOUS PCO2 64.3 mmHg (38-52); VENOUS PH 7.295 (7.310-7.410)
[2025-07-17 19:00] LABS: ABSOLUTE IMMATURE GRANULOCYTES 0.02 x10^3/uL (0.0-0.031); BASOPHILS # 0.05 x10^3/uL (0.01-0.08); EOSINOPHIL % 3.0 % (0.7-5.8); EOSINOPHILS # 0.19 x10^3/uL (0.04-0.36); MCHC 31.9 g/dl (32.2-35.5); MEAN CELL VOLUME 86.5 fl (79.4-94.8); MEAN PLT VOLUME 9.9 fl (9.4-12.3); MONOCYTE # 0.46 x10^3/uL (0.24-0.86); MONOCYTE % 7.4 % (4.7-12.5); RDW 12.1 % (12.4-16.6)
[2025-07-17] MEDS: SODIUM CHLORIDE 0.9% 500 ML INFUS.BAG IV ONE (19:09)
[2025-07-17 19:45] LABS: GLUCOSE,RANDOM 246.0 mg/dL (74-106)
[2025-07-17 19:46] LABS: TOT PROT 7.5 g/dl (6.4-8.2)
[2025-07-17 19:47] LABS: CO2 28.0 mmol/L (21-32)
[2025-07-17 19:48] LABS: ALK PHOS 129.0 U/L (40-150)
[2025-07-17 19:51] LABS: CREATININE 1.21 mg/dL (0.55-1.3); SGOT/AST 21.0 U/L (5-34); SGPT/ALT 18.0 U/L (0-55)
[2025-07-17 20:12] LABS: HCV DIAGNOSTIC IN-HOUSE W/RFLX NON-REACTIVE (NONREACTIVE)
[2025-07-17 22:11] LABS: HIV INTERPRETATION NEGATIVE (NEGATIVE)
== END 2025-07-17 20:28 | disposition home or self-care (01) ==
LOC: JER 16:53
DX: E11.65 Type 2 diabetes mellitus with hyperglycemia (principal); R51.9 Headache, unspecified; R05.9 Cough, unspecified; R53.81 Other malaise; R53.83 Other fatigue; H53.8 Other visual disturbances
CPT/HCPCS: 36415; 71045-TC-FY; 80053; 82010; 82803; 82962; 83735; 85025; 86803; 87389; 87637-QW; 93005; 93010; 99285-25